=== PATIENT | female | born 1990 | race Caucasian/White ===

== ENCOUNTER 2020-12-10 19:41 | Emergency (ER) | payer SELFPAY ==
--- NOTE | 2020-12-10 19:57 | ED.FEMALEGU ---
HPI - Female Genitourinary General Chief complaint: Urogenital-Female Stated complaint: Sores in genital area Time Seen by Provider: 12/10/20 19:57 Source: patient and RN notes reviewed Mode of arrival: ambulatory Limitations: no limitations History of Present Illness HPI Narrative: 30-year-old female presents to the [facility] with sores in the vaginal area. Patient states that she had one blisterlike sore approximately 3 days ago. Thought it was related to her shaving. Reports that when it popped it was painful and she had clear fluid draining from it. After 1 pound 3 more appeared. Has a history of cold sores. Denies any other past medical history. Denies chances of having an STD, states that she is in a monogamous relationship Related Data Allergies Allergy/AdvReac Type Severity Reaction Status Date / Time No Known Allergies Allergy Verified 12/10/20 19:52 Review of Systems Review of Systems: Narrative: CONSTITUTIONAL: Denies fever, chills, or sweats. CARDIOVASCULAR: Denies chest pain, palpitations, or edema. RESPIRATORY: Denies cough or dyspnea. GASTROINTESTINAL: Denies abdominal pain, nausea, vomiting, or diarrhea. GENITOURINARY: Denies dysuria or hematuria. Sores anterior labia SKIN: Denies rash or itching. MUSCULOSKELETAL: Denies back pain, joint pain, or myalgia. NEUROLOGIC: Denies headache, numbness, or weakness. PSYCHIATRIC: Denies anxiety or depression. All other systems reviewed are negative, except as documented in HPI. PMFSH Comments At the time of my signature, I reviewed and agree with the nursing past medical, surgical, social, and family history. There is no relevant family history pertinent to the patient complaint. Exam Narrative: Exam Narrative: GENERAL: This is a well-nourished, well-developed patient, in no apparent distress. HEAD: normocephalic, atraumatic. EYES: PERRL. Sclera clear/white. Vision is grossly intact. EARS: External ears normal NECK: Neck supple, non-tender without lymphadenopathy, masses or thyromegaly. CARDIOVASCULAR: Regular rate and rhythm without murmurs, gallops, or rubs. RESPIRATORY: Clear to auscultation. Breath sounds equal bilaterally. No wheezes, rales, or rhonchi. GASTROINTESTINAL: Abdomen soft, non-tender, nondistended. SKIN: warm, intact with no suspicious lesions or rash, good texture and turgor. Lesions noted area area NEURO: awake, alert, and oriented to person, place and time. There were no obvious focal neurologic abnormalities. EXTREMITIES: No joint tenderness, effusion, or edema noted. No calf tenderness. Negative Homans sign bilaterally. BACK: Nontender without deformity. No CVA tenderness. : Female genitals images: 1. 3 blister lesions with 4th one crusted over. Mild redness in surrounding area. Course Vital Signs Vital signs: Vital Signs Temperature 99.0 F 12/10/20 19:58 Pulse Rate 76 12/10/20 19:58 Respiratory Rate 16 12/10/20 19:58 Blood Pressure 132/74 12/10/20 19:58 Pulse Oximetry 100 12/10/20 19:58 Temperature 99.0 F 12/10/20 19:58 Pulse Rate 76 12/10/20 19:58 Respiratory Rate 16 12/10/20 19:58 Blood Pressure 132/74 12/10/20 19:58 Pulse Oximetry 100 12/10/20 19:58 Reviewed, within normal limits MDM - Female Genitourinary MDM Narrative Medical decision making narrative: Discharge instructions reviewed with patient, as well as provided in writing per nursing staff. The instructions also include specific and strict return/GO TO THE ER as well as f/u information. All questions have been answered, and the patient deny any further questions with discharge and discharge plan. Differential Diagnosis Differential diagnosis: Likely other (Herpes simplex, folliculitis, cellulitis, staph infection,) Lab Data Labs: Lab Results 12/09/20 Range/Units 20:04 Herpes Simplex Culture Pending Pending Critical Care Time Critical Care Time Critical Care Time: No Discharge Plan Discharge Cl
[2020-12-10 19:58] VITALS: BP 132/74; PULSE 76; RESP 16; TEMP 37.2; O2SAT 100
--- NOTE | 2020-12-10 20:12 | PC.NURSE ---
2003- main lab at [facility] contacted, and they said to order the herpes simplex viral culture, and bag it for veronica.
== END 2020-12-10 20:18 | disposition home or self-care (01) ==
PROVIDERS: Emergency Provider Nurse Practitioner
DX: N89.9 Noninflammatory disorder of vagina, unspecified (principal)
CPT/HCPCS: 87255; 99203; G0463

== ENCOUNTER 2024-05-31 13:54 | Emergency (ER) | payer OTHER, SELFPAY ==
--- NOTE | ~2024-05-31 | XR_ITS ---
EXAMINATION: XR forearm LT 2V DATE: 05/31/2024 14:33 INDICATION: Left forearm injury. TECHNIQUE: 2 views of left forearm were obtained. COMPARISON: None. FINDINGS: Alignment is normal. No fracture. Joint spaces are normal. No elbow joint effusion. IMPRESSION: 1. No fracture. Reviewed, dictated and finalized at location A. IMPRESSION: 1. No fracture.
--- NOTE | ~2024-05-31 | XR_ITS ---
EXAMINATION: XR hand LT min 3V DATE: 05/31/2024 14:32 INDICATION: Left hand injury. TECHNIQUE: 3 views of left hand were obtained. COMPARISON: None. FINDINGS: Bone alignment is normal. No fracture. Joint spaces are normal. IMPRESSION: 1. No fracture. Reviewed, dictated and finalized at location A. IMPRESSION: 1. No fracture.
--- NOTE | 2024-05-31 13:56 | ED.FALL ---
HPI - Fall General Chief Complaint: Extremity Injury, Upper Stated Complaint: FALL Time Seen by Provider: 05/31/24 14:17 Source: patient and RN notes reviewed Mode of arrival: ambulatory Limitations: no limitations History of Present Illness HPI Narrative: 38-year-old female presents concern for left upper extremity injury. Reports she fell on uneven concrete today working caught herself on her outstretched hands. She reports abrasions to both knees. She reports mainly she has pain in her left hand and 1st digit and and left elbow. Reports left elbow pain with rotation. complaint: fall Related Data Home Medications Medication Instructions Recorded Confirmed No Home Medications 05/31/24 05/31/24 Allergies Allergy/AdvReac Type Severity Reaction Status Date / Time ethinyl estradiol Allergy Chest Pain Verified 05/31/24 14:18 [From Sprintec (28)] norgestimate Allergy Chest Pain Verified 05/31/24 14:18 [From Sprintec (28)] Review of Systems Review of Systems: CONSTITUTIONAL: Denies malaise, chills, sweats, or fever. SKIN: Denies rash or itching. Reports abrasions to bilateral knees and on the palmar aspect of the left hand MUSCULOSKELETAL: Reports left hand and elbow pain NEUROLOGIC: Denies numbness, weakness All systems reviewed & are unremarkable except as noted in HPI and below PMFSH Comments At time of signature, agree with nursing past medical, surgical, social and family history. There is no relevant family history pertinent to the presenting complaint Exam Narrative: GENERAL: Well-appearing, well-nourished, and in no acute distress. HEAD: Normocephalic, atraumatic. EYES: PERRLA, conjunctivae clear NECK: Supple. CHEST: Speaks in full sentences. No respiratory distress. HEART: Regular rate and rhythm. Normal and equal peripheral pulses. EXTREMITIES: Left hand, digits, wrist, elbow have grossly normal strength and sensation, limited range of motion. Mild hand digit edema without erythema, ecchymosis. Normal sensation with sensitivity to light touch and pain. Medial elbow tenderness, 1st digit tenderness. No open wounds, no skin tenting, no devitalized tissue or atrophy, no trophic changes, no obvious deformity, alignment normal, nearby joints and structures intact. Distal pulses palpable and equal bilaterally, skin warm, dry, pink. Capillary refill less than 3 seconds. SKIN: Warm, dry, no rash. NEURO: Alert and oriented x3. PSYCH: Normal mood and affect Course Course Emergency Course: Patient is aware of diagnosis, understands and agrees to treatment plan. Anticipatory guidance given. Patient agrees to follow-up as directed and is aware of reasons to seek care at the emergency department. Portions of this record may have been created with voice recognition software Level of Care: Express Care Visit Vital Signs Vital signs: Reviewed. MDM - Fall MDM Narrative Medical decision making narrative: Patients injury and pain is consistent with musculoskeletal etiology. No signs of neurological or vascular compromise on exam. Compartments and tissues are soft without signs of compartment syndrome. Pain is felt appropriate for further evaluation on an outpatient basis. Imaging Data Radiologist's impression: EXAMINATION: XR hand LT min 3V DATE: 05/31/2024 14:32 INDICATION: Left hand injury. TECHNIQUE: 3 views of left hand were obtained. COMPARISON: None. FINDINGS: Bone alignment is normal. No fracture. Joint spaces are normal. IMPRESSION: 1. No fracture. EXAMINATION: XR forearm LT 2V DATE: 05/31/2024 14:33 INDICATION: Left forearm injury. TECHNIQUE: 2 views of left forearm were obtained. COMPARISON: None. FINDINGS: Alignment is normal. No fracture. Joint spaces are normal. No elbow joint effusion. IMPRESSION: 1. No fracture. Critical Care Time Critical Care Time Critical Care Time: No Discharge Plan Discharge Clinical Impression: Sprain and st
[2024-05-31 14:07] VITALS: BP 131/78; PULSE 65; RESP 18; TEMP 36.6; O2SAT 100
[2024-05-31] MEDS: IBUPROFEN 600 MG TABLET PO (14:43)
== END 2024-05-31 14:55 | disposition home or self-care (01) ==
PROVIDERS: Emergency Provider Nurse Practitioner
DX: S63.502A Unspecified sprain of left wrist, initial encounter (principal); S66.912A Strain of unspecified muscle, fascia and tendon at wrist and hand level, left hand, initial encounter; S53.402A Unspecified sprain of left elbow, initial encounter; W19.XXXA Unspecified fall, initial encounter
CPT/HCPCS: 73090; 73130; 99213; A9270; G0463